=== PATIENT | female | born 1985 | race Caucasian/White ===

== ENCOUNTER 2023-05-26 07:04 | Inpatient (IN) | payer BC ==
[~2023-05-26] VITALS: Ht 157.5 cm; Wt 70.3 kg
[2023-05-26] MEDS ORDERED: PREN-543 PO (08:04)
[2023-05-26] MEDS ORDERED: LACTATED RINGERS 1,000 ML IV SCH (08:05)
[2023-05-26] MEDS ORDERED: OXYTOCIN 20 UNITS in LACTATED RINGERS 1,000 ML IV SCH (08:05)
[2023-05-26] MEDS ORDERED: METHYLERGONOVINE 0.2 MG/ML AMP IM PRN ×2 (08:05→13:55)
[2023-05-26 09:02] LABS: BASOPHILS # (AUTO) 0.1 K/uL (0.00-0.22); BASOPHILS % (AUTO) 0.7 % (0.0-2.0); EOSINOPHILS # (AUTO) 0.1 K/uL (0-0.4); EOSINOPHILS % (AUTO) 0.5 % (0.0-4.0); HEMOGLOBIN 13.7 g/dL (12.0-16.0); LYMPHOCYTES # (AUTO) 2.3 K/uL (2.5-16.5); LYMPHOCYTES % (AUTO) 14.4 % (20.5-51.1); MEAN CORPUSCULAR HEMOGLOBIN 30 pg (27-31); MEAN CORPUSCULAR HGB CONC 34 g/dL (33-37); MEAN CORPUSCULAR VOLUME 90.6 fL (80-94); MONOCYTES # (AUTO) 0.8 K/uL (0.8-1.0); MONOCYTES % (AUTO) 5.2 % (1.7-9.3); NEUTROPHILS # (AUTO) 12.7 K/uL (1.8-7.7); NEUTROPHILS % (AUTO) 79.2 % (42.2-75.2); PLATELET COUNT (AUTO) 336 K/uL (140-450); RED BLOOD CELL COUNT(AUTO) 4.53 MIL/uL (4.20-5.40); WHITE BLOOD COUNT (AUTO) 16.1 K/uL (4.8-10.8)
[2023-05-26 09:10] LABS: APPEARANCE,URINE CLEAR (CLEAR); BILIRUBIN,URINE NEGATIVE (NEGATIVE); BLOOD, URINE 2+ (NEGATIVE); COLOR,URINE YELLOW (YELLOW); LEUKOCYTE ESTERASE ,URINE NEGATIVE (NEGATIVE); NITRITE, URINE NEGATIVE (NEGATIVE); PROTEIN,URINE NEGATIVE (NEGATIVE); UGLUCOSE NEGATIVE (NEGATIVE); UROBILINOGEN,URINE 0.2 EU/dL (0.2 - 1)
[2023-05-26 09:19] LABS: WBC,URINE 0-5 /HPF (0-5)
[2023-05-26 09:20] LABS: BACTERIA,URINE FEW /HPF (None Seen); SQUAMOUS EPITHELIAL CELL,UR 4-10 (MOD) /LPF (0-3 (FEW))
[2023-05-26 09:20] LABS: INR 0.84 (0.8-1.2); PARTIAL THROMBOPLASTIN TIME 25.2 secs (22-35.6); PROTHROMBIN TIME 8.9 secs (10.8-13.4)
[2023-05-26 09:23] LABS: ALBUMIN 2.7 g/dL (3.4-5.0); ANION GAP 17.1 (8-16); CALCIUM 8.8 mg/dL (8.5-10.1); CARBON DIOXIDE 20.7 mmol/L (21-32); CREATININE 0.8 mg/dL (0.6-1.3); POTASSIUM 3.8 mmol/L (3.5-5.1); TOTAL BILIRUBIN 0.5 mg/dL (0.0-1.0)
[2023-05-26] MEDS ORDERED: AMPICILLIN 2,000 MG in NACL 0.9% 100 ML IV SCH (09:40)
[2023-05-26] MEDS ORDERED: AMPICILLIN 2,000 MG VIAL ONE (09:45)
[2023-05-26] MEDS ORDERED: AMPICILLIN 1,000 MG in NACL 0.9% 50 ML IV SCH (12:00)
[2023-05-26] MEDS ORDERED: OXYTOCIN 20 UNITS/LR PREMIX 1,000 ML IV ONE (12:02)
[2023-05-26] MEDS ORDERED: LIDOCAINE 1% 500 MG/50 ML VIAL ONE (12:10)
[2023-05-26] MEDS ORDERED: MEASLES, MUMPS, AND RUBELLA 1 VIAL SQVAC ONE (13:55)
[2023-05-26] MEDS ORDERED: BENZOCAINE/MENTHOL 20%-0.5% 60 GM CAN TP PRN (13:55)
[2023-05-26] MEDS ORDERED: METHYLERGONOVINE 0.2 MG TAB PO PRN (13:55)
[2023-05-26] MEDS ORDERED: OXYTOCIN 10 UNITS/ML VIAL IM PRN (13:55)
[2023-05-26] MEDS ORDERED: MEASLES, MUMPS, AND RUBELLA 1 VIAL SQVAC SCH (14:05)
[2023-05-26] MEDS: IBUPROFEN 800 MG TAB PO PRN (16:11)
[2023-05-27] MEDS: IBUPROFEN 800 MG TAB PO PRN ×2 (00:41→09:50)
[2023-05-27 08:32] LABS: HEMATOCRIT 32.4 % (36-48); HEMOGLOBIN 11.1 g/dL (12.0-16.0)
[2023-05-27 09:06] LABS: RUBELLA AB IGG 1.37 index (Immune >0.99)
[2023-05-28 12:07] LABS: HEPATITIS B SURFACE ANTIGEN Negative (Negative)
== END 2023-05-27 15:30 | disposition home or self-care (01) | DRG 807 ==
LOC: MLD 07:04 → OBSVTOIN 08:02 → MFCC 14:30
PROVIDERS: ADMIT Obstetrics & Gynecology; ATTEND Obstetrics & Gynecology
PROC: 10E0XZZ Delivery of Products of Conception, External Approach (ICD-10-PCS; principal; 2023-05-26)
DX: O69.81X0 Labor and delivery complicated by cord around neck, without compression, not applicable or unspecified (principal); Z37.0 Single live birth; Z3A.39 39 weeks gestation of pregnancy; Z20.822 Contact with and (suspected) exposure to COVID-19
CPT/HCPCS: 36415; 59409; 80053; 81001; 85018; 85025; 85610; 85730; 86592; 86762; 86886; 86900; 86901; 87340; 87653-90; J0290; J2001; J2590; J7120